=== PATIENT | male | born 2000 | race American Indian/Alaskan Native ===

== ENCOUNTER 2019-02-05 13:34 | Emergency (ER) | payer MEDICAID, OTHER ==
[2019-02-05 13:58] VITALS: BP 132/72
--- NOTE | 2019-02-05 13:59 | Emergency Department Report ---
Blank Doc - Documentation Documentation: 18 y o male presents with lower back , and bilateral knee and leg pain worse w ith movement, states tingling and numbness sensation to lower legs.
[2019-02-05] MEDS ORDERED: TORADOL IM ONE (15:01)
[2019-02-05] MEDS ORDERED: DECADRON IM ONE (15:01)
--- NOTE | 2019-02-05 15:02 | Emergency Department Report ---
ED Back Pain/Injury HPI - General Chief Complaint: Back Pain/Injury Stated Complaint: BACK/LEG PAIN Time Seen by Provider: 02/05/19 13:57 Source: patient Limitations: No Limitations - History of Present Illness Initial Comments: 18-year-old -[place] male presents to emergency room complaining of lower back pain for some weeks now. Patient reports pain and numbness in leg that began last night. Patient reports his legs feel heavy. He denies any trauma. 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 He has no urinary symptoms or signs. Patient has no past medical history takes no medications on a daily basis and has no known drug allergies. MD Complaint: back pain Onset/Timin -: week(s) Similar Symptoms Previously: No Radiation: left leg, right leg Severity scale (0 -10): 9 Quality: sharp Consistency: intermittent Improves With: none Worsens With: none Associated Symptoms: numbness. denies: chest pain, difficulty walking, difficulty urinating - Related Data Previous Rx's Medication Instructions Recorded Last Taken Type Ibuprofen [Motrin 600 MG tab] 600 mg PO Q8H PRN #20 tablet 02/05/19 Unknown Rx Allergies Allergy/AdvReac Type Severity Reaction Status Date / Time No Known Allergies Allergy Unverified 02/05/19 13:40 ED Review of Systems ROS: Stated complaint: BACK/LEG PAIN Other details as noted in HPI Comment: All other systems reviewed and negative ED Past Medical Hx - Past Medical History Previous Medical History?: No - Surgical History Past Surgical History?: No - Social History Smoking Status: Current Every Day Smoker Substance Use Type: Alcohol - Medications Home Medications: Home Medications Medication Instructions Recorded Confirmed Last Taken Type Ibuprofen [Motrin 600 MG tab] 600 mg PO Q8H PRN #20 tablet 02/05/19 Unknown Rx ED Physical Exam - General Limitations: No Limitations General appearance: alert, in no apparent distress - Head Head exam: Present: atraumatic, normocephalic - Eye Eye exam: Present: normal appearance - ENT ENT exam: Present: mucous membranes moist - Neck Neck exam: Present: normal inspection - Respiratory Respiratory exam: Absent: respiratory distress - Cardiovascular Cardiovascular Exam: Present: normal rhythm. Absent: systolic murmur, diastolic murmur, rubs, gallop - GI/Abdominal GI/Abdominal exam: Present: soft - Rectal Rectal exam: Present: deferred - Extremities Exam Extremities exam: Present: normal inspection - Back Exam Back exam: Present: normal inspection - Neurological Exam Neurological exam: Present: alert, oriented X3 - Psychiatric Psychiatric exam: Present: normal affect, normal mood - Skin Skin exam: Present: warm, dry, intact, normal color. Absent: rash ED Course Vital Signs 02/05/19 13:56 Temperature 98.3 F Pulse Rate 76 Respiratory 16 Rate Blood Pressure 132/72 O2 Sat by Pulse 99 Oximetry ED Medical Decision Making - Radiology Data Radiology results: report reviewed Patient: VASILIY PARRA MR#: [id number] : 2000 Acct:[id number] Age/Sex: 18 / M ADM Date: 02/05/19 Loc: ED Attending Dr: Ordering Physician: DEMETRI SMALLS Date of Service: 02/05/19 Procedure(s): XR spine lumbosacral 2-3V Accession Number(s): [id number] cc: DEMETRI SMALLS Fluoro Time In Minutes: LUMBAR SPINE HISTORY: Low back pain COMPARISON: None. TECHNIQUE: 3 view(s) of the lumbar spine obtained. FINDINGS: Vertebrae: Normal alignment. No fracture or significant abnormality. Disc Spaces:No significant abnormality. Facet Joints:No significant abnormality. Additional findings: Mild dextroscoliosis centered at L3 which may be positional. IMPRESSION: 1. No significant abnormality of the lumbar spine. Signer Name: Cheryl Zuleta MD Signed: 02/05/2019 3:42 PM Workstation Name: [id number] Transcribed By: REF Dictated By: CHERYL ZULETA MD Electronically Authenticated By: CHERYL ZULETA MD Signed Date/Time: 02/05/19 1542 DD/ 1539 TD/TT: - Medical Decision Making Patient has been seen by this provider in [facility]. This 18-year-old male comes in for lower back pain with radiation to both legs with numbness. Patient x-rays were negative patient was given a prednisone shot and Toradol injection. Patient be discharged home or referred to orthopedics. Critical care attestation.: If time is entered above; I have spent that time in minutes in the direct care of this critically ill patient, excluding procedure time. ED Disposition Clinical Impression: Back pain with radiculopathy Disposition: - TO HOME OR SELFCARE Is pt being admited?: No Does the pt Need Aspirin: No Condition: Stable Instructions: Lumbar Radiculopathy (ED) Additional Instructions: Please take pain medication as prescribed. Follow-up with orthopedic provider. X-rays were negative. Prescriptions: Ibuprofen [Motrin 600 MG tab] 600 mg PO Q8H PRN #20 tablet PRN Reason: Pain Referrals: CALIN GOVEA MD [Staff Physician] - 3-5 Days
--- NOTE | 2019-02-05 15:46 | XRay Report ---
LUMBAR SPINE HISTORY: Low back pain COMPARISON: None. TECHNIQUE: 3 view(s) of the lumbar spine obtained. FINDINGS: Vertebrae: Normal alignment. No fracture or significant abnormality. Disc Spaces:No significant abnormality. Facet Joints:No significant abnormality. Additional findings: Mild dextroscoliosis centered at L3 which may be positional. IMPRESSION: 1. No significant abnormality of the lumbar spine. Signer Name: Ran Echols MD Signed: 02/05/2019 3:42 PM Workstation Name: [id number]
== END 2019-02-05 16:19 | disposition home or self-care (01) ==
LOC: ED 13:34
DX: M54.10 Radiculopathy, site unspecified (principal); F17.200 Nicotine dependence, unspecified, uncomplicated
CPT/HCPCS: 72100; J1100; J1885; 96372